=== PATIENT | male | born 1990 | race Hispanic/Latino ===

== ENCOUNTER 2024-11-16 20:39 | Inpatient (IN) | payer BC, OTHER ==
[2024-11-16] MEDS ORDERED: NA CHLORIDE 0.9% 1,000 ML ONE ×2 (21:09→22:56)
[2024-11-16] MEDS ORDERED: ONDANSETRON 4 MG/2 ML VIAL ONE (21:09)
[2024-11-16] MEDS ORDERED: METOCLOPRAMIDE 10 MG/2mL INJ ONE (21:13)
[2024-11-16] MEDS ORDERED: DIPHENHYDRAMINE 50 MG/ML VIAL ONE (21:13)
[2024-11-16 21:28] LABS: Absolute Basophils 0.1 K/uL (0-0.5); Absolute Lymphocytes (CBC) 2.5 K/uL (0.7-4.9); Absolute Monocytes 0.5 K/uL (0.1-1.3); Absolute Neutrophil 17.6 K/uL (1.8-8.0); Basophils % 0.6 % (0-1.3); Hematocrit 45.2 % (39.6-49.0); Hemoglobin 15.2 g/dL (13.6-17.9); MCH 28.5 pg (27.0-35.0); MCHC 33.6 g/dL (32.0-36.0); MCV 84.9 fL (80-100); MPV 8.9 fL (7.6-11.3); Monocytes % 2.3 % (3.3-12.3); Neutrophils % 85.1 % (41.7-73.7); Platelets 391 thou/uL (152-406); RBC Red Blood Cell Count 5.32 M/uL (4.33-5.43); Red Cell Distribution Width 14.8 % (12.1-15.2)
[2024-11-16 22:12] LABS: Albumin 3.2 g/dL (3.4-5.0); Albumin/Globulin Ratio 0.6 (1.1-1.8); Anion Gap 17.8 mEq/L (5.0-15.0); BETA HYDROXYBUTYRATE 2.6 mmol/L (0.02-0.27); Bilirubin Total 0.5 mg/dL (0.2-1.0); Globulin 5.8 g/dL (2.3-3.5); Potassium 3.8 mEq/L (3.5-5.1)
[2024-11-16 22:41] LABS: Band Neutrophils 17 % (0-1); Differential Total Cells Count 100; Lymphocytes 11 % (15-42); Monocytes 2 % (0-10); Reactive Lymphocytes 2 %; Segmented Neutrophils 67 % (40-80)
[2024-11-16 22:42] LABS: Blood Morphology Comment NOT SEEN (NOT SEEN); Platelet Estimate ADEQ
[2024-11-16] MEDS ORDERED: MORPHINE 4 MG/ML SYR ONE ×2 (22:53→22:55)
--- NOTE | 2024-11-16 23:33 | ER ---
Nurse's Notes [facility] Name: James Orellana Jr Age: 34 yrs Sex: Male : 1990 Arrival Date: 11/16/2024 Time: 20:39 Bed 7 Private MD: Diagnosis: Acute pancreatitis Presentation: 11/16 20:55 Chief complaint: Patient states: ELEVATED SUGAR LEVELS, NAUSEA, VOMITING, AND ABDOMINAL ha1 CRAMPING. HAD 50 UNITS OF LANTUS AROUND 8 PM. 20:55 Coronavirus screen: Vaccine status: Patient reports being unvaccinated. Ebola Screen: ha1 No symptoms or risks identified at this time. Initial Sepsis Screen: Does the patient meet any 2 criteria? No. Patient's initial sepsis screen is negative. Does the patient have a suspected source of infection? No. Patient's initial sepsis screen is negative. Risk Assessment: Do you want to hurt yourself or someone else? Patient reports no desire to harm self or others. Onset of symptoms was November 16, 2024. 20:55 Method Of Arrival: Wheelchair ha1 20:55 Acuity: BARI 3 ha1 Triage Assessment: 21:00 General: Appears uncomfortable, Behavior is anxious. Pain: Complains of pain in abdomen ha1 Pain currently is 10 out of 10 on a pain scale. Neuro: Level of Consciousness is awake, alert, obeys commands, Oriented to person, place, time, situation. Cardiovascular: Patient's skin is warm and dry. Respiratory: Airway is patent Respiratory effort is even, unlabored, Respiratory pattern is regular, symmetrical. GI: Abdomen is round non-distended, obese, Reports lower abdominal pain, upper abdominal pain, nausea, vomiting. Historical: - Allergies: 21:09 No Known Allergies; ha1 - PMHx: 21:09 Diabetes mellitus; ha1 - PSHx: 21:09 Cholecystectomy; ha1 - Immunization history:: Adult Immunizations up to date. - Infectious Disease History:: Denies. - Social history:: Smoking status: Patient denies any tobacco usage or history of. - Family history:: not pertinent. Screenin:04 [facility] ED Fall Risk Assessment (Adult) History of falling in the last 3 months, lg3 including since admission No falls in past 3 months (0 pts) Confusion or Disorientation No (0 pts) Intoxicated or Sedated No (0 pts) Impaired Gait No (0 pts) Mobility Assist Device Used No (0 pt) Altered Elimination No (0 pt) Score/Fall Risk Level 0 - 2 = Low Risk Oriented to surroundings, Maintained a safe environment, Educated pt \T\ family on fall prevention, incl call for assistance when getting out of bed, Assessed \T\ reinforced patient's understanding of fall precautions. Abuse screen: Denies threats or abuse. Denies injuries from another. Nutritional screening: No deficits noted. Tuberculosis screening: No symptoms or risk factors identified. Assessment: 21:04 General: Appears in no apparent distress. uncomfortable, Behavior is calm, cooperative. lg3 Pain: Complains of pain in abdomen Pain currently is 10 out of 10 on a pain scale. Also complains of nausea. Neuro: No deficits noted. Booth Agitation-Sedation Scale (RASS): 0 - Alert and Calm Level of Consciousness is awake, alert, obeys commands, Oriented to person, place, time, situation. Cardiovascular: No deficits noted. Denies chest pain, shortness of breath, Capillary refill < 3 seconds Clubbing of nail beds is absent JVD is absent Patient's skin is warm and dry. Respiratory: No deficits noted. Airway is patent Respiratory effort is even, unlabored, Respiratory pattern is regular, symmetrical. GI: Abdomen is round non-distended, obese, Reports lower abdominal pain, upper abdominal pain, nausea, vomiting. : No signs and/or symptoms were reported regarding the genitourinary system. EENT: No deficits noted. No signs and/or symptoms were reported regarding the EENT system. Derm: No deficits noted. No signs and/or symptoms reported regarding the dermatologic system. Skin is intact, is healthy with good turgor, Skin is dry, Skin is normal, Skin temperature is warm. Musculoskeletal: No deficits noted. No signs and/or symptoms reported regarding the musculoskeletal system. Circulation, motion, and sensation intact. Range of motion: intact in all extremities. 22:10 Reassessment: Patient appears in no apparent distress at this time. No changes from lg3 previously documented assessment. Patient and/or family updated on plan of care and expected duration. Pain level reassessed. Patient is alert, oriented x 3, equal unlabored respirations, skin warm/dry/pink. Vital Signs: 20:55 BP 170 / 105; Pulse 84; Resp 20 S; Temp 98.6(O); Pulse Ox 100% on R/A; Weight 131.54 ha1 kg; Height 5 ft. 7 in. ; Pain 10/10; 22:10 BP 156 / 96; Pulse 80; Resp 18 S; Pulse Ox 100% on R/A; lg3 23:19 BP 168 / 88; Pulse 95; Resp 18 S; Pulse Ox 96% on R/A; lg3 20:55 Body Mass Index 45.42 (131.54 kg, 170.18 cm) ha1 20:55 Pain Scale: Adult ha1 ED Course: 20:42 Patient arrived in ED. ra3 20:46 Mikie Tariq MD is Attending Physician. rt 21:04 Patient has correct armband on for positive identification. Placed in gown. Bed in low lg3 position. Call light in reach. Side rails up X 1. Client placed on continuous cardiac and pulse oximetry monitoring. NIBP monitoring applied. monitoring tech on. Door closed. Noise minimized. Warm blanket given. Pillow given. Family accompanied patient. 21:04 Arm band placed on right wrist. lg3 21:04 Initial lab(s) drawn, by me, EKG done, by ED staff, reviewed by Mikie Tariq MD. lg3 Inserted saline lock: 18 gauge in right antecubital area, using aseptic technique. Blood collected. Flushed with 10 mL NS. Patient maintains SpO2 saturation greater than 95% on room air. 21:09 Triage completed. ha1 21:17 Jessica Hale, RN is Primary Nurse. lg3 21:18 Lipase Sent. lg3 21:18 CMP Sent. lg3 21:18 BHB Sent. lg3 22:46 CT Abd/Pelvis - IV Contrast Only In Process Unspecified. EDMS 23:05 Blood Culture Sent. lg3 23:18 Blood Culture Adult (2) Sent. af3 23:18 Lactate w/ 2H reflex if indic. Sent. af3 23:18 Protime (+inr) Sent. af3 23:18 Ptt, Activated Sent. af3 23:32 Prince Marrero MD is Hospitalizing Provider. rt 11/17 00:51 No provider procedures requiring assistance completed. Patient admitted, IV remains in lg3 place. Administered Medications: 11/16 21:18 Drug: NS 0.9% IV 1000 ml IV at 1 bolus Per protocol; to be given as a bolus over 60 lg3 minutes Route: IV; Rate: 1 bolus; Site: right antecubital; 22:11 Follow up: Response: No adverse reaction; IV Status: Completed infusion; IV Intake: lg3 1000ml 21:18 Drug: metoCLOPramide IVP 10 mg IVP once; over 1 to 2 minutes Route: IVP; Site: right lg3 antecubital; 22:11 Follow up: Response: No adverse reaction; Marked relief of symptoms; Nausea is decreasedlg3 21:18 Drug: diphenhydrAMINE IVP 25 mg IVP once Route: IVP; Site: right antecubital; lg3 22:11 Follow up: Response: No adverse reaction lg3 22:58 Drug: morphine IVP or IV 4 mg IVP once over 4 mins Route: IVP; Infused Over: 4 mins; lg3 Site: right antecubital; 11/17 00:53 Follow up: Response: No adverse reaction; Marked relief of symptoms; Pain is decreased lg3 11/16 22:58 Drug: NS 0.9% IV 1000 ml IV at 1 bolus Per protocol; to be given as a bolus over 60 lg3 minutes Route: IV; Rate: 1 bolus; Site: right antecubital; 11/17 00:52 Follow up: Response: No adverse reaction; IV Status: Completed infusion; IV Intake: lg3 1000ml 11/16 23:48 Drug: Rocephin IV 2 grams IV at calculated rate once; Given slow IV push per pharmarcy lg3 instructions Route: IV; Rate: calculated rate; Site: right antecubital; 11/17 00:44 Follow up: Response: No adverse reaction; IV Status: Completed infusion; IV Intake: [id number] Medication: 00:52 VIS not applicable for this client. lg3 Intake: 11/16 22:11 IV: 1000ml; Total: 1000ml. lg3 11/17 00:44 IV: 10ml; Total: 1010ml. lg3 00:52 IV: 1000ml; Total: 2010ml. lg3 Outcome: 11/16 23:32 Decision to Hospitalize by Provider. rt 11/17 00:51 Admitted to Med/surg accompanied by tech, via stretcher, lg3 Condition: stable Instructed on the need for admit, Demonstrated understanding of instructions, 00:52 Patient left the ED. lg3 Signatures: Dispatcher [employer] EDMS Jessica Hale RN RN lg3 Roxanna Barrow RN RN ha1 Mikie Tariq MD MD rt [place], Ruby ra3 Ade Sanchez 3
--- NOTE | 2024-11-16 23:33 | EDPHYS ---
Physician Documentation [facility] Name: James Orellana Jr Age: 34 yrs Sex: Male : 1990 Arrival Date: 11/16/2024 Time: 20:39 Bed 7 Private MD: ED Physician Mikie Tariq HPI: 11/16 23:08 This 34 yrs old Male presents to ER via Wheelchair with complaints of High rt Blood Sugar, Vomiting. 23:08 Patient with history of diabetes presents to the ED with nausea, vomiting, abdominal rt pain, hyperglycemia. Patient was prescribed metformin but has not been on his medicines for several months, states that his blood sugar was high today but his first time checking it in some time. States that he did develop nausea, vomiting, generalized abdominal pain today. Has never had the symptoms previously. States that he took 50 units of Lantus prior to arrival. Denies other acute complaints at this time, symptoms are moderate severity, no other aggravating elevating factors.. Historical: - Allergies: 21:09 No Known Allergies; ha1 - PMHx: 21:09 Diabetes mellitus; ha1 - PSHx: 21:09 Cholecystectomy; ha1 - Immunization history:: Adult Immunizations up to date. - Infectious Disease History:: Denies. - Social history:: Smoking status: Patient denies any tobacco usage or history of. - Family history:: not pertinent. ROS: 23:08 Constitutional: Negative for fever, chills, and weight loss, Cardiovascular: Negative rt for chest pain, palpitations, and edema, Respiratory: Negative for shortness of breath, cough, wheezing, and pleuritic chest pain, MS/Extremity: Negative for injury and deformity, Skin: Negative for injury, rash, and discoloration, Neuro: Negative for headache, weakness, numbness, tingling, and seizure, 23:08 Abdomen/GI: Positive for abdominal pain, nausea and vomiting, Exam: 23:08 Constitutional: This is a well developed, well nourished patient who is awake, alert, rt and in no acute distress. Head/Face: Normocephalic, atraumatic. Chest/axilla: Normal chest wall appearance and motion. Nontender with no deformity. No lesions are appreciated. Cardiovascular: Regular rate and rhythm with a normal S1 and S2. No gallops, murmurs, or rubs. Normal PMI, no JVD. No pulse deficits. Respiratory: Lungs have equal breath sounds bilaterally, clear to auscultation and percussion. No rales, rhonchi or wheezes noted. No increased work of breathing, no retractions or nasal flaring. Skin: Warm, dry with normal turgor. Normal color with no rashes, no lesions, and no evidence of cellulitis. MS/ Extremity: Pulses equal, no cyanosis. Neurovascular intact. Full, normal range of motion. Neuro: Awake and alert, GCS 15, oriented to person, place, time, and situation. Cranial nerves II-XII grossly intact. Motor strength 5/5 in all extremities. Sensory grossly intact. Cerebellar exam normal. Normal gait. 23:08 ECG was reviewed by the Attending Physician. 23:08 Abdomen/GI: Tenderness to the epigastrium with mild guarding, no rebound, distention, Vital Signs: 20:55 BP 170 / 105; Pulse 84; Resp 20 S; Temp 98.6(O); Pulse Ox 100% on R/A; Weight 131.54 ha1 kg; Height 5 ft. 7 in. ; Pain 10/10; 22:10 BP 156 / 96; Pulse 80; Resp 18 S; Pulse Ox 100% on R/A; lg3 23:19 BP 168 / 88; Pulse 95; Resp 18 S; Pulse Ox 96% on R/A; lg3 20:55 Body Mass Index 45.42 (131.54 kg, 170.18 cm) ha1 20:55 Pain Scale: Adult ha1 MDM: 21:06 Medical Screening Exam initiated rt 23:39 Differential diagnosis: Pancreatitis, DKA, hyperglycemia, gastroparesis. Data reviewed: rt vital signs, nurses notes, lab test result(s), EKG, radiologic studies. Consideration of Admission/Observation Patient was admitted/placed on observation. Management of patient was discussed with the following: Hospitalist: Agrees to admit. I considered the following discharge prescriptions or medication management in the emergency department Medications were administered in the Emergency Department. See MAR. Independent interpretation of the following test(s) in the Emergency Department CT Scan: My interpretation is Pancreatitis seen on my interpretation of CT scan images. Care significantly affected by the following chronic conditions: Diabetes. Counseling: I had a detailed discussion with the patient and/or guardian regarding the historical points, exam findings, and any diagnostic results supporting the discharge/admit diagnosis, lab results, radiology results, the need for further work-up and treatment in the hospital. Response to treatment: the patient's symptoms have mildly improved after treatment. 11/16 21:13 Order name: Glucose, Ancillary Testing; Complete Time: 21:16 EDMS 11/16 21:16 Order name: CBC with Diff; Complete Time: 22:50 rt 11/16 21:16 Order name: CMP; Complete Time: 22:26 rt 11/16 21:16 Order name: Lipase; Complete Time: 22:26 rt 11/16 21:16 Order name: Urinalysis w/ reflexes rt 11/16 21:16 Order name: BHB; Complete Time: 22:26 rt 11/16 21:32 Order name: Manual Differential; Complete Time: 22:50 EDMS 11/16 22:54 Order name: Blood Culture Adult (2) rt 11/16 22:54 Order name: Lactate w/ 2H reflex if indic. rt 11/16 22:54 Order name: Protime (+inr) rt 11/16 22:54 Order name: Ptt, Activated rt 11/16 22:56 Order name: Blood Culture EDMS 11/16 23:26 Order name: Glucose, Ancillary Testing; Complete Time: 23:28 EDMS 11/16 23:29 Order name: Lipid Profile rt 11/16 23:40 Order name: Magnesium EDMS 11/16 23:40 Order name: Phosphorus EDMS 11/16 23:40 Order name: Urinalysis w/ reflexes EDMS 11/16 23:40 Order name: Basic Metabolic Panel EDMS 11/16 23:40 Order name: Basic Metabolic Panel EDMS 11/16 23:40 Order name: CBC with Automated Diff EDMS 11/16 23:40 Order name: CBC with Automated Diff EDMS 11/16 21:16 Order name: CT Abd/Pelvis - IV Contrast Only rt 11/16 21:16 Order name: IV Saline Lock; Complete Time: 21:18 rt 11/16 21:16 Order name: Labs collected and sent; Complete Time: 21:18 rt 11/16 22:54 Order name: Accucheck; Complete Time: 23:05 rt 11/16 22:54 Order name: Cardiac monitoring; Complete Time: 22:58 rt 11/16 22:54 Order name: EKG - Nurse/Tech; Complete Time: :58 rt 11/16 22:54 Order name: IV Saline Lock - Large Bore; Complete Time: :58 rt 11/16 22:54 Order name: O2 Per Protocol; Complete Time: :58 rt 11/16 22:54 Order name: O2 Sat Monitoring; Complete Time: :58 rt 11/16 22:54 Order name: Vital Signs; Complete Time: 23:05 rt EC:08 Rate is 82 beats/min. Rhythm is regular, Normal Sinus Rhythm with No ectopy. Left axis rt deviation noted. CA interval is normal. QRS interval is normal. QT interval is normal. No Q waves. T waves are Normal. No ST changes noted. Interpreted by me. Administered Medications: 21:18 Drug: NS 0.9% IV 1000 ml IV at 1 bolus Per protocol; to be given as a bolus over 60 lg3 minutes Route: IV; Rate: 1 bolus; Site: right antecubital; 22:11 Follow up: Response: No adverse reaction; IV Status: Completed infusion; IV Intake: lg3 1000ml 21:18 Drug: metoCLOPramide IVP 10 mg IVP once; over 1 to 2 minutes Route: IVP; Site: right lg3 antecubital; 22:11 Follow up: Response: No adverse reaction; Marked relief of symptoms; Nausea is decreasedlg3 21:18 Drug: diphenhydrAMINE IVP 25 mg IVP once Route: IVP; Site: right antecubital; lg3 22:11 Follow up: Response: No adverse reaction lg3 22:58 Drug: morphine IVP or IV 4 mg IVP once over 4 mins Route: IVP; Infused Over: 4 mins; lg3 Site: right antecubital; 11/17 00:53 Follow up: Response: No adverse reaction; Marked relief of symptoms; Pain is decreased lg3 11/16 22:58 Drug: NS 0.9% IV 1000 ml IV at 1 bolus Per protocol; to be given as a bolus over 60 lg3 minutes Route: IV; Rate: 1 bolus; Site: right antecubital; 11/17 00:52 Follow up: Response: No adverse reaction; IV Status: Completed infusion; IV Intake: lg3 1000ml 11/16 23:48 Drug: Rocephin IV 2 grams IV at calculated rate once; Given slow IV push per pharmarcy lg3 instructions Route: IV; Rate: calculated rate; Site: right antecubital; 11/17 00:44 Follow up: Response: No adverse reaction; IV Status: Completed infusion; IV Intake: [id number] Disposition Summary: 11/16/24 23:32 Hospitalization Ordered Notes: Hospitalization Status: Inpatient Admission rt Provider: Prince Elida rt Location: Telemetry/MedSurg (Inpatient) rt Condition: Fair rt Problem: new rt Symptoms: have improved rt Bed/Room Type: Standard rt Room Assignment: 230(11/16/24 23:44) af3 Diagnosis - Acute pancreatitis rt Forms: - Medication Reconciliation Form rt - SBAR form rt - Leadership Thank You Letter rt Critical care time excluding procedures: 11/16 23:39 Critical care time: Bedside Care: 30 minutes, Consultation: 5 minutes. Total time: 35 rt minutes Signatures: Dispatcher [employer] EDJessica Tobin RN RN lg3 Roxanna Barrow RN RN ha1 Mikie Tariq MD MD rt Ade Sanchez af3 Corrections: (The following items were deleted from the chart) 23:30 23:30 LIPID PROFILE+[id number].LAB.BRZ ordered. EDOH EDMS 23:44 23:32 rt af3
--- NOTE | 2024-11-16 23:34 | RAD REPORT ---
EXAM: CT Abdomen and Pelvis With Intravenous Contrast CLINICAL HISTORY: The patient is 34 years old and is Male; ABD PAIN TECHNIQUE: Axial computed tomography images of the abdomen and pelvis with intravenous contrast. Sagittal an d coronal reformatted images were created and reviewed. This CT exam was performed using one or more of the following dose reduction techniques: automated exposure control, adjustment of the mA a nd/or kV according to patient size, and/or use of iterative reconstruction technique. COMPARISON: CT abdomen pelvis October 22, 2023 FINDINGS: LUNG BASES: Unremarkable. No mass. No consolidation. ABDOMEN: LIVER: The liver is enlarged and fatty. GALLBLADDER AND BILE DUCTS: The gallbladder is not seen and is likely surgically absent. PANCREAS: Extensive peripancreatic fluid and stranding is present. The pancreas is edematous. The pancreas enhances uniformly. There is no ductal dilatation. SPLEEN: Unremarkable. ADRENALS: Unremarkable. No mass. KIDNEYS AND URETERS: Unremarkable. The kidneys enhance symmetrically. No obstructing renal or ure teral calculus is seen. No hydronephrosis or hydroureter. No perinephric fluid or stranding. STOMACH AND BOWEL: The stomach is filled with fluid and air. The small bowel is normal in caliber . Minimal stool is present throughout the colon. There is no mucosal thickening or evidence of obstruction. PELVIS: APPENDIX: The appendix is normal in caliber without surrounding inflammation. BLADDER: The bladder is well distended. REPRODUCTIVE: Unremarkable as visualized. ABDOMEN and PELVIS: INTRAPERITONEAL SPACE: Unremarkable. No free air. No significant fluid collection. BONES/JOINTS: No acute fracture. SOFT TISSUES: There are small bilateral fat containing inguinal hernias. Findings fat-containin g umbilical hernia is present. VASCULATURE: Unremarkable. No abdominal aortic aneurysm. LYMPH NODES: A few prominent bilateral inguinal and iliac chain lymph nodes are present. IMPRESSION: Findings consistent with acute pancreatitis. Electronically signed by: Clemencia Batres MD 11/16/2024 11:06 PM [facility] Due to temporary technical issues with the PACS/GradFly reporting system, reports are being serafin d by the in-house radiologist without review as a courtesy to ensure prompt reporting the interpreting radiologist is fully responsible for the content of the report. Transcribed Date/Time: 11/16/2024 11:34 PM
[2024-11-16] MEDS ORDERED: ONDANSETRON 4 MG/2 ML VIAL IV PRN (23:36)
[2024-11-16] MEDS ORDERED: CEFTRIAXONE 1000 MG/VIAL ONE (23:39)
[2024-11-16] MEDS ORDERED: SODIUM CHLORIDE 0.9% 10ML INJ IV PRN (23:39)
[2024-11-16 23:48] LABS: PT Prothrombin Time 11.6 SECONDS (9.4-12.5); PTT, Activated Partial Thromb 33.6 SECONDS (24.3-36.9); Protime INR 1.04
--- NOTE | 2024-11-16 23:58 | P.HP ---
Certification for Inpatient Patient admitted to: Inpatient With expected LOS: >2 Midnights Practitioner: I am a practitioner with admitting privileges, knowledge of patient current condition, hospital course, and medical plan of care. Services: Services provided to patient in accordance with Admission requirements found in Title 42 Section 412.3 of the Code of Federal Regulations Patient History Date of Service: 11/17/24 Reason for admission: Acute pancreatitis History of Present Illness: Patient is a 34-year-old male with morbid obesity and insulin-dependent diabetes mellitus but unfortunately with dietary and medication noncompliance. He presented to the ER accompanied by with acute onset of abdominal pain. Patient was in his usual state of health until earlier today when he suddenly experienced abdominal pain. Associated symptoms included nausea and vomiting. He apparently checked his blood glucose and it was very elevated. Patient administer 50 units of Lantus prior to arrival. Workup in the ER is consistent with acute pancreatitis supported by both lipase and CT findings. During my evaluation, patient was slightly drowsy. at bedside assisted with the HPI portion of this note. Allergies No Known Allergies Allergy (Verified 04/13/16 11:22) Home Medications: Insulin Glargine,Hum.rec.anlog [Lantus Solostar] 10 unit SQ DAILY 11/17/24 - Past Medical/Surgical History Diabetic: No - Family History Brother -: Diabetes, Other (see notes) Notes: Pancreatitis Mother -: Diabetes Father -: Hypertension - Social History Alcohol use: No CD- Drugs: No Caffeine use: No Physical Examination - Physical Exam General: Obese, Other (Drowsy) HEENT: Atraumatic, Normocephalic Respiratory: Clear to auscultation bilaterally, Normal air movement Cardiovascular: No edema, Normal pulses, Regular rate/rhythm, Normal S1 S2 - Studies Laboratory Data (last 24 hrs) 11/16/24 11/16/24 11/16/24 23:13 21:15 21:15 WBC 20.70 H Hgb 15.2 Hct 45.2 Plt Count 391 PT 11.6 INR 1.04 APTT 33.6 Sodium 130 L Potassium 3.8 BUN 10 Creatinine 0.97 Glucose 369 H Total Bilirubin 0.5 AST 20 ALT 40 Alkaline Phosphatase 94 Lipase 2049 H Assessment and Plan - Problems (Diagnosis) (1) Acute pancreatitis Current Visit: Yes Status: Acute (2) Type 2 diabetes mellitus Current Visit: Yes Status: Acute (3) Morbid obesity Onset Date: 06/07/16 Current Visit: No Status: Acute - Plan Assessment 34-year-old male with morbid obesity and type 2 diabetes mellitus and noncompliant with diet and insulin. He is being admitted for acute pancreatitis after he presented with abdominal pain. He has a lipase of more than 2000 and ketones in his blood. Patient also has mild metabolic acidosis, suggestive of DKA. Patient has a triglyceride level more than 1500 Hypertriglyceridemia induced-pancreatitis DKA Type 2 diabetes mellitus with dietary and medication noncompliance Morbid obesity Plan: Patient admitted to ICU for hypertriglyceridemia-induced pancreatitis He will be started on insulin infusion and dextrose based IV fluid Continue checking blood glucose hourly, triglyceride every 12 hours We will continue this treatment until triglyceride less than 500 Pain control Antiemetics, IV PPI Resume rest of home medication upon reconciliation - Advance Directives Does patient have a Living Will: No Does patient have a Durable POA for Healthcare: No
[2024-11-17 00:06] LABS: Specific Gravity > 1.030 (1.005-1.030); Sqamous Epithelial <5 /HPF (None Seen); Urine Bacteria None Seen /HPF (<20); Urine Bilirubin NEGATIVE (Negative); Urine Blood Negative (Negative); Urine Clarity Clear (Clear); Urine Color Light-Yellow (Yellow); Urine Culture Reflex Order NOT NEEDED; Urine Glucose 4+ (Over) (Negative); Urine Ketones 3+ (Negative); Urine Microscopic Reflex YN ORDER UMIC; Urine Mucus Slight /HPF (None Seen); Urine Nitrite NEGATIVE (Negative); Urine Protein 1+ (Negative); Urine RBC <5 /HPF (None Seen); Urine Urobilinogen Normal (Normal); Urine WBC <5 /HPF (<5); Urine pH 5.5 (5.0-7.0)
[2024-11-17 00:43] LABS: HDL Cholesterol 39 mg/dL (40-60); Magnesium 1.8 mg/dL (1.6-2.4); Phosphorus 2.2 mg/dL (2.5-4.9)
[2024-11-17] MEDS ORDERED: CEFTRIAXONE 1000 MG/VIAL ONE (00:46)
[2024-11-17 00:55] LABS: LDL, Direct 68 mg/dL (100-129)
[2024-11-17] MEDS: HYDROMORPHONE HCL 1 MG/ML INJ IV PRN (01:25)
[2024-11-17] MEDS: NA CHLORIDE 0.9% 1,000 ML IV SCH ×2 (01:27→18:48)
[2024-11-17] MEDS ORDERED: GLUCAGON 1 MG/VIAL IM PRN (01:53)
[2024-11-17] MEDS ORDERED: D50W 25 GM/50 ML SYRINGE IV PRN (01:53)
[2024-11-17] MEDS ORDERED: D10W 125 ML IV PRN (02:07)
[2024-11-17] MEDS: INSULIN REGULAR, HUMAN 100 UNIT in NA CHLORIDE 0.9% 100 ML IV SCH (02:17)
[2024-11-17] MEDS: PANTOPRAZOLE 40 MG INJ IVP SCH (02:19)
[2024-11-17] MEDS: D5W 1,000 ML IV SCH (02:19)
[2024-11-17 03:19] VITALS: BMI 45.8
[2024-11-17 05:39] LABS: Absolute Lymphocytes (CBC) 1.7 K/uL (0.7-4.9); Absolute Monocytes 0.8 K/uL (0.1-1.3); Absolute Neutrophil 14.6 K/uL (1.8-8.0); Basophils % 0.3 % (0-1.3); Hematocrit 43.3 % (39.6-49.0); Hemoglobin 14.4 g/dL (13.6-17.9); Lymphocytes % 9.8 % (15.3-44.8); MCH 28.4 pg (27.0-35.0); MCHC 33.3 g/dL (32.0-36.0); MCV 85.4 fL (80-100); MPV 8.9 fL (7.6-11.3); Monocytes % 4.6 % (3.3-12.3); Neutrophils % 85.3 % (41.7-73.7); Nucleated Red Blood Cells % 0.1 % (0-0); Platelets 361 thou/uL (152-406); RBC Red Blood Cell Count 5.07 M/uL (4.33-5.43); Red Cell Distribution Width 14.8 % (12.1-15.2)
[2024-11-17 05:47] LABS: Anion Gap 12.7 mEq/L (5.0-15.0); Potassium 3.7 mEq/L (3.5-5.1)
[2024-11-17] MEDS: MAGNESIUM SULFATE 1 gm IVPB 1 GM/100 ML BAG IV ONE (06:51)
[2024-11-17] MEDS: POTASSIUM PHOS IN 0.9 % NACL 15 MMOL/250 ML BAG IV ONE (08:22)
[2024-11-17] MEDS: ENOXAPARIN 40 MG/0.4 ML SQ SCH (08:23)
[2024-11-17] MEDS: DOCOSAHEXANOIC AC/EPA 1000 MG PO SCH (18:47)
[2024-11-17] MEDS: INSULIN GLARGINE 100 UNIT/ML SQ SCH (18:47)
[2024-11-17] MEDS: gemfibroziL 600 MG TAB PO SCH (18:47)
[2024-11-17] MEDS: INSULIN REGULAR (HUMAN) 100 UNIT/ML SQ SCH (18:52)
[2024-11-18] MEDS ORDERED: LABETALOL 20 MG/4ML SYRINGE IV PRN (01:15)
[2024-11-18 05:44] LABS: Absolute Basophils 0.1 K/uL (0-0.5); Absolute Eosinophils 0.2 K/uL (0-0.5); Absolute Lymphocytes (CBC) 3.1 K/uL (0.7-4.9); Absolute Neutrophil 12.7 K/uL (1.8-8.0); Basophils % 0.7 % (0-1.3); Eosinophils % 1.4 % (0-4.4); Hematocrit 41.8 % (39.6-49.0); Hemoglobin 13.8 g/dL (13.6-17.9); MCH 28.4 pg (27.0-35.0); MCV 85.9 fL (80-100); MPV 8.8 fL (7.6-11.3); Monocytes % 5.6 % (3.3-12.3); Neutrophils % 74.3 % (41.7-73.7); Platelets 335 thou/uL (152-406); RBC Red Blood Cell Count 4.87 M/uL (4.33-5.43)
[2024-11-18 07:01] LABS: Albumin 2.7 g/dL (3.4-5.0); Albumin/Globulin Ratio 0.5 (1.1-1.8); Anion Gap 9.5 mEq/L (5.0-15.0); Bilirubin Total 0.7 mg/dL (0.2-1.0); Magnesium 2.2 mg/dL (1.6-2.4); Phosphorus 2.5 mg/dL (2.5-4.9); Potassium 3.5 mEq/L (3.5-5.1); Protein, Total 7.7 g/dL (6.4-8.2)
[2024-11-18] MEDS: POTASSIUM PHOS IN 0.9 % NACL 15 MMOL/250 ML BAG IV ONE (07:52)
[2024-11-18 21:25] VITALS: O2SAT 98
[2024-11-19 05:06] LABS: Anion Gap 8.4 mEq/L (5.0-15.0); Potassium 3.4 mEq/L (3.5-5.1)
[2024-11-19 05:20] LABS: Phosphorus 2.7 mg/dL (2.5-4.9)
[2024-11-19] MEDS: POTASSIUM CL SA 10 MEQ TAB PO ONE (05:51)
--- NOTE | 2024-11-19 07:13 | P.PN ---
Subjective Date of Service: 11/19/24 Chief Complaint: Acute pancreatitis Reports abdominal pain, no reported nausea vomiting Physical Examination - Vital Signs Temperature: 98.8 F Blood Pressure: 115/59 Pulse: 88 Respirations: 16 Pulse Ox (%): 96 - Physical Exam General: Alert, In no apparent distress, Oriented x3 HEENT: Atraumatic, Normocephalic Neck: Supple, 2+ carotid pulse no bruit Respiratory: Clear to auscultation bilaterally, Normal air movement Cardiovascular: No edema, Normal pulses Capillary refill: <2 Seconds Gastrointestinal: Normal bowel sounds, Soft and benign Musculoskeletal: No clubbing, No swelling Integumentary: No breakdown, No significant lesion Neurological: Normal speech, Normal strength at 5/5 x4 extr Assessment And Plan - Plan Assessment and Plan - Problems (Diagnosis) (1) Acute pancreatitis secondary to high triglyceridemia Current Visit: Yes Status: Acute (2) Type 2 diabetes mellitus Current Visit: Yes Status: Acute (3) Morbid obesity Onset Date: 06/07/16 Current Visit: No Status: Acute - Plan Assessment 34-year-old male with morbid obesity and type 2 diabetes mellitus and noncompliant with diet and insulin. He is being admitted for acute pancreatitis after he presented with abdominal pain. He has a lipase of more than 2000 and ketones in his blood. Patient also has mild metabolic acidosis, suggestive of DKA. Patient has a triglyceride level more than 1500 Hypertriglyceridemia induced-pancreatitis DKA Type 2 diabetes mellitus with dietary and medication noncompliance Morbid obesity Plan: Patient admitted to ICU for hypertriglyceridemia-induced pancreatitis downgrade to floor, He will be started on insulin infusion and dextrose based IV fluid Continue checking blood glucose hourly, triglyceride every 12 hours We will continue this treatment until triglyceride less than 500 Pain control start antilipids Antiemetics, IV PPI Resume rest of home medication upon reconciliation - Advance Directives Does patient have a Living Will: No Does patient have a Durable POA for Healthcare: No Discharge Plan: Home Critical Care: No Time Spent Managing PTS Care (In Minutes): 35
--- NOTE | 2024-11-19 07:25 | P.DS ---
Admission Date: 11/16/24 Discharge Date: 11/19/24 Disposition: ROUTINE DISCHARGE Reason for Admission: Acute pancreatitis Brief History of Present Illness: 34-year-old male with morbid obesity and insulin-dependent diabetes mellitus but unfortunately with dietary and medication noncompliance. He presented to the ER accompanied by with acute onset of abdominal pain. Patient was in his usual state of health until earlier today when he suddenly experienced abdominal pain. Associated symptoms included nausea and vomiting. He apparently checked his blood glucose and it was very elevated. Patient administer 50 units of Lantus prior to arrival. Workup in the ER is consistent with acute pancreatitis supported by both lipase and CT findings. During my evaluation, patient was slightly drowsy. at bedside assisted with the HPI portion of this note. - Physical Exam General: Alert, In no apparent distress, Oriented x3 HEENT: Atraumatic, Normocephalic Neck: Supple, 2+ carotid pulse no bruit Respiratory: Clear to auscultation bilaterally, Normal air movement Cardiovascular: No edema, Normal pulses Capillary refill: <2 Seconds Gastrointestinal: Normal bowel sounds, Soft and benign Musculoskeletal: No clubbing, No swelling Integumentary: No breakdown, No significant lesion Neurological: Normal speech, Normal strength at 5/5 x4 extr Hospital Course: 34-year-old male with morbid obesity and insulin-dependent diabetes mellitus but unfortunately with dietary and medication noncompliance. He presented to the ER accompanied by with acute onset of abdominal pain. Patient was in his usual state of health until earlier today when he suddenly experienced abdominal pain. Associated symptoms included nausea and vomiting. He apparently checked his blood glucose and it was very elevated. Patient administer 50 units of Lantus prior to arrival. Workup in the ER is consistent with acute pancreatitis supported by both lipase and CT findings. He was admitted to ICU, treated with insulin infusion and dextrose. As needed analgesics, lipase is trending down. Tolerating diet, stable to discharge home, follow-up with PCP in 1 week Discharged medications Fish oil, gemfibrozil, Resume home insulin, Lantus 10 mg at bedtime Metformin twice daily Pantoprazole 40 mg daily Prescription sent for Accu-Chek, strips Assessment Acute pancreatitis, lipase trending down, tolerating diet Hypertriglyceridemia started on antilipid, gemfibrozil, Diabetes mellitus type 2 with hyperglycemia treated with insulin while inpatient, Hypokalemia electrolytes replace as needed Laboratory evaluation Lipase 2049->846 Triglycerides 567, l UA 4+ glucose urea, 3+ ketones CT of the abdomen pelvis Findings consistent with acute pancreatitis. Continue home medicines as previously prescribed GOAL: Clear understanding of disease process INSTRUCTIONS: Physician Discharge Instructions: -Follow-up with PCP in 1 to 2 weeks -Please call Dr. Ruiz at [phone] if any questions regarding hospital stay -Please call nursing station at [phone] if any nursing or medication questions -Return to the emergency room if symptoms worsen Diet: ADA, low sodium Activity: Fall precautions Vital Signs/Physical Exam: Temp Pulse Resp BP Pulse Ox 98.8 F 88 16 115/59 L 96 11/19/24 07:13 11/19/24 07:13 11/19/24 07:13 11/19/24 07:13 11/19/24 07:13 Laboratory Data at Discharge: WBC 17.10 thou/uL (4.3-10.9) H 11/18/24 05:29 Hgb 13.8 g/dL (13.6-17.9) 11/18/24 05:29 Hct 41.8 % (39.6-49.0) 11/18/24 05:29 Plt Count 335 thou/uL (152-406) 11/18/24 05:29 PT 11.6 SECONDS (9.4-12.5) 11/16/24 23:13 INR 1.04 11/16/24 23:13 APTT 33.6 SECONDS (24.3-36.9) 11/16/24 23:13 Sodium 138 mEq/L (136-145) 11/19/24 04:19 Potassium 3.4 mEq/L (3.5-5.1) L 11/19/24 04:19 BUN 7 mg/dL (7-18) 11/19/24 04:19 Creatinine 0.62 mg/dL (0.70-1.30) L 11/19/24 04:19 Glucose 161 mg/dL (74-106) H 11/19/24 04:19 Phosphorus 2.7 mg/dL (2.5-4.9) 11/19/24 04:19 Magnesium 2.2 mg/dL (1.6-2.4) 11/18/24 05:29 Total Bilirubin 0.7 mg/dL (0.2-1.0) 11/18/24 05:29 AST 15 U/L (15-37) 11/18/24 05:29 ALT 28 U/L (16-61) 11/18/24 05:29 Alkaline Phosphatase 76 U/L (45-117) 11/18/24 05:29 Triglycerides 567 mg/dL (<150) H 11/18/24 05:29 Cholesterol 296 mg/dL (<200) H 11/17/24 00:07 LDL Cholesterol Direct 68 mg/dL (100-129) L 11/17/24 00:07 HDL Cholesterol 39 mg/dL (40-60) L 11/17/24 00:07 Cholesterol/HDL Ratio 7.59 11/17/24 00:07 Lipase 382 U/L (13-75) H 11/18/24 05:29 Home Medications: Atorvastatin Calcium 40 mg PO BEDTIME 30 Days #30 tab 11/19/24 Blood Sugar Diagnostic [Blood Glucose Test Strip] 1 each MC DAILY 30 Days #1 kit 11/19/24 Blood-Glucose Meter [Blood Glucose Meter] 1 each MC DAILY 30 Days #1 kit 11/19/24 Blood-Glucose Meter [Blood Glucose Monitoring] 1 each MC ACHS 30 Days #100 kit 11/19/24 Docosahexanoic AC/Epa [Fish Oil 1,000 MG*] 2,000 mg PO BID 6AM 6PM 30 Days #120 cap 11/19/24 Insulin Glargine,Hum.rec.anlog [Lantus Solostar] 10 unit SQ DAILY 30 Days #1 bottle 11/19/24 Metformin HCl 500 mg PO BID 30 Days #60 tab 11/19/24 Pantoprazole [Protonix Tab*] 40 mg PO 30 MIN BEFORE HS 30 Days #30 tab 11/19/24 gemfibroziL [Lopid*] 1,200 mg PO BID 6AM 6PM 30 Days #120 tab 11/19/24 New Medications: Atorvastatin Calcium 40 mg PO BEDTIME 30 Days #30 tab Blood-Glucose Meter [Blood Glucose Meter] 1 each MC DAILY 30 Days #1 kit Blood-Glucose Meter [Blood Glucose Monitoring] 1 each MC ACHS 30 Days #100 kit Blood Sugar Diagnostic [Blood Glucose Test Strip] 1 each MC DAILY 30 Days #1 kit Docosahexanoic AC/Epa [Fish Oil 1,000 MG*] 2,000 mg PO BID 6AM 6PM 30 Days #120 cap Insulin Glargine,Hum.rec.anlog [Lantus Solostar] 10 unit SQ DAILY 30 Days #1 bottle gemfibroziL [Lopid*] 1,200 mg PO BID 6AM 6PM 30 Days #120 tab Metformin HCl 500 mg PO BID 30 Days #60 tab Pantoprazole [Protonix Tab*] 40 mg PO 30 MIN BEFORE HS 30 Days #30 tab Physician Discharge Instructions: PROBLEM: Pancreatitis, GOAL: Clear understanding of disease process INSTRUCTIONS: INSTRUCTIONS: Physician Discharge Instructions: -Follow-up with PCP in 1 to 2 weeks -Please call Dr. Riuz at [phone] if any questions regarding hospital stay -Please call nursing station at [phone] if any nursing or medication questions -Return to the emergency room if symptoms worsen Diet: ADA, low sodium Activity: Fall precautions Diet: ADA Activity: 34-year-old male with morbid obesity and insulin-dependent diabetes mellitus but unfortunately with dietary and medication noncompliance. He presented to the ER accompanied by with acute onset of abdominal pain. Patient was in his usual state of health until earlier today when he suddenly experienced abdominal pain. Associated symptoms included nausea and vomiting. He apparently checked his blood glucose and it was very elevated. Patient administer 50 units of Lantus prior to arrival. Workup in the ER is consistent with acute pancreatitis supported by both lipase and CT findings. He was admitted to ICU, treated with insulin infusion and dextrose. As needed analgesics, lipase is trending down. Tolerating diet, stable to discharge home, follow-up with PCP in 1 week Discharged medications Fish oil, gemfibrozil, Resume home insulin, Lantus 10 mg at bedtime Metformin twice daily Pantoprazole 40 mg daily Prescription sent for Accu-Chek, strips Assessment Acute pancreatitis, lipase trending cristina, tolerating diet Hypertriglyceridemia started on antilipid, gemfibrozil, patient will Diabetes mellitus type 2 with hyperglycemia treated with insulin while inpatient Hypokalemia electrolytes replace as needed Laboratory evaluation Lipase [id number] Triglycerides 567, l UA 4+ glucose urea, 3+ ketones CT of the abdomen pelvis Findings consistent with acute pancreatitis. Continue home medicines as previously prescribed GOAL: Clear understanding of disease process Diet: ADA Followup: ELZBIETA LAYTON [Primary Care Provider] - Time spent managing pt's care (in minutes): 45
[2024-11-19 15:03] VITALS: BP 115/59; TEMP 98.8
== END 2024-11-19 14:20 | disposition home or self-care (01) | DRG 438 ==
LOC: ER 20:39 → ERHOLD 23:36 → 2ND 11-17 00:43 → 3RD-ICU 11-17 01:56 → 2ND 11-18 11:09
PROVIDERS: ADMIT Internal Medicine; ATTEND Hospitalist
DX: K85.90 Acute pancreatitis without necrosis or infection, unspecified (principal); E11.10 Type 2 diabetes mellitus with ketoacidosis without coma; Z68.42 Body mass index [BMI] 45.0-49.9, adult; E66.01 Morbid (severe) obesity due to excess calories; E78.1 Pure hyperglyceridemia; Z79.4 Long term (current) use of insulin; E87.6 Hypokalemia; T38.3X6A Underdosing of insulin and oral hypoglycemic [antidiabetic] drugs, initial encounter; Z91.119 Patient's noncompliance with dietary regimen due to unspecified reason; Z91.199 Patient's noncompliance with other medical treatment and regimen due to unspecified reason; Z91.148 Patient's other noncompliance with medication regimen for other reason
CPT/HCPCS: 36415; 74177; 80048; 80053; 80061; 81001; 82010; 82140; 82607; 82947; 83605; 83690; 83735; 84100; 84132; 84478; 85025; 85610; 85730; 87040; 96361; 96365; 96375; 99285; J0696; J1171; J1200; J1650; J2405; J2470; J2765; J3475; J7030; Q9967